=== PATIENT | female | born 1960 | race Caucasian/White ===

== ENCOUNTER → 2016-06-25 | Outpatient (CLI) | payer BC ==
--- OUTSIDE RECORDS SUMMARY | 2016-06-25 09:24 | XMS REPORT | Continuity of Care Document ---
Author Author [facility] Organization [facility] Address Unknown Phone Unavailable Allergies Medications Problems Date Dx Coded Attending Type Code Diagnosis Diagnosed By 07/04/2014 Ot V76.12 07/19/2014 RYANN SORENSEN Ot 611.71 07/07/2015 RYANN SORENSEN Ot Z12.31 Procedures Results Encounters ACCT No. Visit Date/Time Discharge Status Pt. Type Provider Facility Loc./Unit Complaint [id number] 06/01/2015 18:51:31 [facility] Outpatient Jarrod [facility] Real
--- NOTE | 2016-06-28 14:06 | Diagnostic Imaging Report ---
INDICATION: Bilateral screening mammogram. TECHNIQUE: Screening digital mammography was performed bilaterally with a Computer Aided Detection (CAD) system. PERSONAL HISTORY: No current complaints stated on the questionnaire. COMPARISON: 06/20/2015. FINDINGS: The breasts are composed of scattered fibroglandular densities. There are scattered benign-appearing calcifications. Allowing for technique and positional differences, no suspicious change is seen. IMPRESSION: No significant change. ACR BI-RADS Category 2: Benign findings. Result letter will be mailed to the patient. Note: At least 10% of breast cancer is not imaged by mammography. Dictated by: Dictated on workstation # [id number]
== END ==
LOC: RAD 09:21
PROVIDERS: ATTEND Nurse Practitioner Family
DX: Z12.31 Encounter for screening mammogram for malignant neoplasm of breast (principal)
CPT/HCPCS: 77067

== ENCOUNTER → 2017-06-28 | Outpatient (CLI) | payer BC ==
--- NOTE | 2017-06-28 19:11 | Diagnostic Imaging Report ---
INDICATION: Routine screening. COMPARISON: Comparison is made with prior exams from 06/25/2016 and 06/20/2015. The current study was also evaluated with a Computer Aided Detection (CAD) system. FINDINGS: Mild density is identified bilaterally. There is a focal density in the right breast centrally at the nipple line on the CC view, which appears more prominent when compared with prior exams. No corresponding density on the MLO view is identified. The left breast is unremarkable. There are scattered benign calcifications on the right. The axillae are unremarkable. IMPRESSION: Right breast density. Additional views including spot compression and rolled CC views are recommended. ACR BI-RADS Category 0: Incomplete. (Needs additional imaging evaluation). Result letter will be mailed to the patient. Note: At least 10% of breast cancer is not imaged by mammography. Dictated by: Dictated on workstation # [id number]
== END ==
LOC: RAD 08:39
PROVIDERS: ATTEND Nurse Practitioner Family
DX: Z12.31 Encounter for screening mammogram for malignant neoplasm of breast (principal)
CPT/HCPCS: 77067

== ENCOUNTER → 2017-07-13 | Outpatient (CLI) | payer BC ==
--- NOTE | 2017-07-13 20:24 | Diagnostic Imaging Report ---
Ultrasound of the right breast complete. INDICATION: Abnormal mammogram. FINDINGS: The screening mammogram performed on 06/28/2017 noted a small focal density in the midportion of the breast on the craniocaudad view. This finding cannot be visualized on this MLO view. This density did not appear to be as conspicuous on the diagnostic mammogram performed earlier today. On this study, there is no discrete solid or cystic mass within the midportion of breast. I suspect that the density seen on mammogram is either secondary to fibroglandular tissue or to a benign process. Even so, I would recommend that a short-term (6 month) followup mammogram of the right breast be obtained for continued evaluation. IMPRESSION: There is no abnormality to correspond the small density seen on the screening mammogram. Considerations and recommendations as above. ACR BI-RADS Category 3: Probably benign findings. Dictated by: Dictated on workstation # [id number]
--- NOTE | 2017-07-14 21:12 | Diagnostic Imaging Report ---
Unilateral diagnostic right mammogram. INDICATION: Abnormal screening mammogram. The current study was also evaluated with a Computer Aided Detection (CAD) system. FINDINGS: The recent screening mammogram performed on 06/28/2017 noted a small focal density in the midportion of the right breast in the craniocaudad view. There is no corresponding abnormality seen on the MLO view. The compression views of this area show that the density is not as conspicuous. This finding is not as well visualized on the rolled views either. This density cannot be identified on the ML view. I suspect that this is either related to a benign process or to fibroglandular tissue. Even so, I would recommend that ultrasound of the right breast be performed for further study. IMPRESSION: There is no evidence of malignancy. Ultrasound would be recommended for further evaluation. ACR BI-RADS Category 0: Incomplete. (Needs additional imaging evaluation). Result letter will be mailed to the patient. Note: At least 10% of breast cancer is not imaged by mammography. Dictated by: Dictated on workstation # [id number]
== END ==
LOC: RAD 12:15
PROVIDERS: ATTEND Nurse Practitioner Family
DX: R92.2 Inconclusive mammogram (principal)
CPT/HCPCS: 76641

== ENCOUNTER → 2018-03-01 | Outpatient (CLI) | payer BC ==
--- NOTE | 2018-03-01 21:17 | Diagnostic Imaging Report ---
EXAMINATION: Ultrasound of the right breast, limited. INDICATION: Abnormal mammogram. FINDINGS: The screening mammogram performed on 07/08/2017 noted a small area of increased density in the right breast. The subsequent diagnostic mammogram and ultrasound exam of 07/13/2017 failed to show any sign of malignancy. On the diagnostic mammogram performed prior to the study, the area of concern did seem somewhat smaller, but there still seem to be a small persistent density in this region. On this study, there is no discrete solid or cystic mass identified. The fact that the area in question has decreased in size since the prior exam would suggest it is not related to an aggressive neoplastic process. Even so, I would recommend that the right breast be reexamined by a diagnostic mammogram and ultrasound when the patient has her screening mammogram of the left breast in June of 2018. IMPRESSION: There is no evidence of malignancy. Recommendations as above. ACR BI-RADS Category 3: Probably benign findings. Dictated by: Dictated on workstation # [id number]
--- NOTE | 2018-03-01 21:17 | Diagnostic Imaging Report ---
INDICATION: Focal density mid portion of right breast. EXAMINATION: Unilateral diagnostic right mammogram with 3-D tomosynthesis. The current study was also evaluated with a Computer Aided Detection (CAD) system. FINDINGS: The screening mammogram of 06/28/2017 noted a small focal density in the midportion of the right breast. This was only seen on the craniocaudal view. The previous diagnostic mammogram performed on 07/13/2017 failed to show any sign of malignancy. On this exam, the oval density on the craniocaudal view is difficult to appreciate. There still seems to be a small area of increased density in the midportion of the breast in the same region on the MLO view. This is somewhat more conspicuous on the MLO view than on the prior exam. I do suspect that this finding is benign, but I would recommend that ultrasound be performed for further study. The overall appearance of the right breast is otherwise stable. IMPRESSION: Ultrasound will be recommended for further evaluation of the small density in the mid portion of the right breast. ACR BI-RADS Category 0: Incomplete. (Needs additional imaging evaluation). Result letter will be mailed to the patient. Note: At least 10% of breast cancer is not imaged by mammography. Dictated by: Dictated on workstation # [id number]
== END ==
LOC: RAD 08:15
PROVIDERS: ATTEND Nurse Practitioner Family
DX: R92.2 Inconclusive mammogram (principal)

== ENCOUNTER → 2018-07-28 | Outpatient (CLI) | payer BC ==
--- NOTE | 2018-07-28 13:23 | Diagnostic Imaging Report ---
INDICATION: Six-month follow up right breast density. CORRELATION is made with prior mammograms dating back to 06/25/2016. TECHNIQUE: 2D and 3D bilateral diagnostic mammography was performed with CAD. FINDINGS: Focal density noted centrally in the right breast on CC view continues to show decrease in prominence when compared with prior exams. This is most consistent with a benign etiology. No new mass is seen. No suspicious calcifications are identified. There are benign calcifications present. Axillae are unremarkable. IMPRESSION: BI-RADS category 2. Stable bilateral mammograms with no mammographic features suspicious for malignancy. The patient may return to routine annual screening. Dictated by: Dictated on workstation # [id number]
== END ==
LOC: RAD 12:13
PROVIDERS: ATTEND Nurse Practitioner Family
DX: R92.2 Inconclusive mammogram (principal)
CPT/HCPCS: 77066

== ENCOUNTER → 2019-08-27 | Outpatient (CLI) | payer BC ==
--- NOTE | 2019-08-27 10:48 | Diagnostic Imaging Report ---
INDICATION: Routine screening. COMPARISON: 07/28/2018 and 06/28/2017. TECHNIQUE: 2D and 3D bilateral screening mammography was performed with CAD. FINDINGS: Scattered fibroglandular densities are identified bilaterally. No mass or malignant appearing microcalcifications are seen. There are benign calcifications bilaterally. The axillae are unremarkable. IMPRESSION: No mammographic features suspicious for malignancy are identified. ACR BI-RADS Category 2: Benign findings. Result letter will be mailed to the patient. Note: At least 10% of breast cancer is not imaged by mammography. Dictated by: Dictated on workstation # [id number]
== END ==
LOC: RAD 08:30
PROVIDERS: ATTEND Nurse Practitioner Family
DX: Z12.31 Encounter for screening mammogram for malignant neoplasm of breast (principal)
CPT/HCPCS: 77063; 77067

== ENCOUNTER → 2020-08-27 | Outpatient (CLI) | payer BC ==
--- NOTE | 2020-08-27 10:58 | Diagnostic Imaging Report ---
INDICATION: Routine screening. COMPARISON: Prior mammograms from 08/27/2019 and 07/28/2018. TECHNIQUE: 2D and 3D bilateral screening mammography was performed with CAD. FINDINGS: Scattered fibroglandular densities are identified bilaterally. Benign calcifications in the right breast are noted. No mass or malignant appearing microcalcifications are identified. The axillae are unremarkable. IMPRESSION: No mammographic features suspicious for malignancy are identified. ACR BI-RADS Category 2: Benign findings. Result letter will be mailed to the patient. Note: At least 10% of breast cancer is not imaged by mammography. Dictated by: Dictated on workstation # [id number]
== END ==
LOC: RAD 09:42
PROVIDERS: ATTEND Nurse Practitioner Family
DX: Z12.31 Encounter for screening mammogram for malignant neoplasm of breast (principal)
CPT/HCPCS: 77063; 77067

== ENCOUNTER → 2021-08-28 | Outpatient (CLI) | payer BC ==
--- NOTE | 2021-08-31 15:47 | Diagnostic Imaging Report ---
INDICATION: Routine screening. Comparison is made with prior mammogram from 08/27/2020 and 08/27/2019. 2-D and 3-D bilateral screening mammography was performed with CAD Scattered fibroglandular densities are identified bilaterally. Scattered benign calcifications are noted. There is a benign-appearing nodule in the retroareolar left breast. No spiculated mass or malignant appearing microcalcifications are seen. Axillae are unremarkable. IMPRESSION: No mammographic features suspicious for malignancy are identified. ACR BI-RADS Category 2: Benign findings. Result letter will be mailed to the patient. Note: At least 10% of breast cancer is not imaged by mammography. BI-RADS Category 2 Dictated by: Dictated on workstation # [id number]
== END ==
LOC: RAD 10:00
PROVIDERS: ATTEND Nurse Practitioner Family
DX: Z12.31 Encounter for screening mammogram for malignant neoplasm of breast (principal)
CPT/HCPCS: 77063; 77067

== ENCOUNTER → 2022-08-31 | Outpatient (CLI) | payer BC ==
--- NOTE | 2022-08-31 11:39 | Diagnostic Imaging Report ---
INDICATION: Routine screening. COMPARISON: 08/28/2021 and 08/27/2020. TECHNIQUE: 2D and 3D bilateral screening mammography was performed with CAD. FINDINGS: Scattered fibroglandular densities are identified bilaterally. The nodular density in the retroareolar left breast is stable. There are scattered benign calcifications. No spiculated mass or malignant-appearing microcalcifications are seen. The axillae are unremarkable. IMPRESSION: No mammographic features suspicious for malignancy are identified. ACR BI-RADS Category 2: Benign findings. Result letter will be mailed to the patient. Note: At least 10% of breast cancer is not imaged by mammography. Dictated by: Dictated on workstation # [id number]
== END ==
LOC: RAD 07:57
PROVIDERS: ATTEND Nurse Practitioner Family
DX: Z12.31 Encounter for screening mammogram for malignant neoplasm of breast (principal)
CPT/HCPCS: 77063; 77067